=== PATIENT | male | born 1955 | race Caucasian/White ===

== ENCOUNTER 2018-08-18 07:32 | Observation (INO) | payer OTHER ==
[2018-08-18] MEDS: CIPROFLOXACIN 400MG/D5W 200 ML IVPB (08:00)
[2018-08-18] MEDS ORDERED: MITOMYCIN 5 MG INJ OP (09:00)
[2018-08-18] MEDS ORDERED: ROCURONIUM 50 MG INJ (10:23)
[2018-08-18] MEDS ORDERED: SUCCINYLCHOLINE CHLORIDE 100 MG/5 ML SYG IV (10:23)
[2018-08-18] MEDS ORDERED: GLYCOPYRROLATE 0.4 MG INJ ×2 (10:23→10:28)
[2018-08-18] MEDS ORDERED: PROPOFOL 20 ML (10:23)
[2018-08-18] MEDS ORDERED: NEOSTIGMINE 3 MG/3 ML SYRINGE ×2 (10:23→10:28)
[2018-08-18] MEDS ORDERED: LIDOCAINE 2% (SDV) 5 ML INJ (10:23)
[2018-08-18] MEDS ORDERED: IOHEXOL 300MG/ML 30 ML BTL (10:42)
[2018-08-18] MEDS ORDERED: MEPERIDINE 100 MG INJ (10:58)
[2018-08-18] MEDS: BELLADONNA ALK/OPIUM SUPP PR ×2 (12:00→13:01)
[2018-08-18] MEDS ORDERED: FENTAnyl 50 MCG/ML VIAL IV ×3 (12:00)
[2018-08-18] MEDS ORDERED: HYDROmorphONE 1 MG/5 ML IV SYRINGE IV (12:00)
[2018-08-18] MEDS ORDERED: OXYCODONE/ACETAMINOPHEN (5/325) TAB PO ×2 (12:00)
[2018-08-18] MEDS ORDERED: EPHEDrine SULFATE 50 MG/5 ML SYG IV (12:00)
[2018-08-18] MEDS ORDERED: DIPHENHYDRAMINE 50 MG INJ IV (12:00)
[2018-08-18] MEDS ORDERED: LABETALOL HCL 20MG INJ IV (12:00)
[2018-08-18] MEDS ORDERED: hydrALAzine 20 MG INJ IV (12:00)
[2018-08-18] MEDS ORDERED: METOCLOPRAMIDE 10 MG INJ IV (12:00)
[2018-08-18] MEDS ORDERED: ATROPINE 1 MG/10 ML SYRINGE (12:18)
[2018-08-18] MEDS: HYDROmorphONE 1 MG/5 ML IV SYRINGE IV ×3 (12:58→14:12)
[2018-08-18] MEDS ORDERED: MAGNESIUM HYDROXIDE 30ML CUP PO (13:00)
[2018-08-18] MEDS: MEPERIDINE 25 MG INJ IV (13:01)
[2018-08-18] MEDS: MIDAZOLAM 1 MG/ML 2 ML INJ IV (13:22)
[2018-08-18] MEDS: ONDANSETRON 4 MG INJ IV (13:22)
[2018-08-18 13:24] LABS: ADD MAN DIFF? NO
[2018-08-18 13:32] LABS: BASOPHIL # 0.1 10^3/ul (0.0-0.1); BASOPHILS % 1.1 % (0.0-2.0); EOSINOPHILS # 0.3 10^3/ul (0.0-0.5); EOSINOPHILS % 3.6 % (0.0-7.0); HEMOGLOBIN 12.6 g/dl (14.0-18.0); LYMPHOCYTES % 14.1 % (15.0-51.0); MEAN CORPUSCULAR HEMOGLOBIN 29.6 pg (29.0-33.0); MEAN CORPUSCULAR HGB CONC 33.2 g/dl (32.0-37.0); MEAN CORPUSCULAR VOLUME 89.2 fl (82.0-101.0); MEAN PLATELET VOLUME 10.3 fl (7.4-10.4); MONOCYTE # 0.5 10^3/ul (0.3-0.9); MONOCYTES % 6.7 % (0.0-11.0); NEUTROPHIL # 5.3 10^3/ul (1.6-7.5); NEUTROPHILS % 73.3 % (39.0-77.0); PLATELET COUNT 226 10^3/UL (140-415); RED BLOOD COUNT 4.26 10^6/ul (4.70-6.10); RED CELL DISTRIBUTION WIDTH 12.6 % (11.5-14.5)
[2018-08-18 13:32] LABS: WHITE BLOOD COUNT 7.3 10^3/ul (4.8-10.8)
[2018-08-18] MEDS: HYDROCODONE/APAP (5/325) TAB PO ×2 (16:56→21:02)
[2018-08-18] MEDS: CIPROFLOXACIN 500 MG TAB PO (17:57)
[2018-08-18] MEDS: DEXTROSE 5%-0.45% NACL 1,000 ML IV (17:58)
[2018-08-18] MEDS: TAMSULOSIN (SR) 0.4 MG CAP PO (21:01)
[2018-08-18] MEDS: DOCUSATE SODIUM 100 MG CAP PO (21:01)
[2018-08-18] MEDS: ZOLPIDEM 5 MG TAB PO (22:48)
[2018-08-19] MEDS: HYDROCODONE/APAP (10/325) TAB PO ×2 (02:08→11:02)
[2018-08-19] MEDS: CIPROFLOXACIN 500 MG TAB PO (06:11)
[2018-08-19] MEDS: FINASTERIDE 5 MG TAB PO (08:39)
[2018-08-19] MEDS: DOCUSATE SODIUM 100 MG CAP PO (08:40)
[2018-08-19] MEDS: morphine 2 MG INJ IV ×2 (08:41→14:10)
[2018-08-19] MEDS: DEXTROSE 5%-0.45% NACL 1,000 ML IV (08:49)
== END 2018-08-19 14:20 | disposition home or self-care (01) ==
LOC: SDS 07:32 → REC 12:53 → MS1 15:46
PROVIDERS: Urology
DX: C67.5 Malignant neoplasm of bladder neck (principal); N41.9 Inflammatory disease of prostate, unspecified; N40.1 Benign prostatic hyperplasia with lower urinary tract symptoms
CPT/HCPCS: 52214; 85025; 88305

== ENCOUNTER 2018-11-03 05:38 | Day surgery (SDC) | payer OTHER ==
[2018-11-03] MEDS: CIPROFLOXACIN 400 MG in D5W 200 ML IVPB (05:30)
[2018-11-03] MEDS: LACTATED RINGER'S 1,000 ML IV (07:19)
[2018-11-03] MEDS ORDERED: LIDOCAINE 2% (SDV) 5 ML INJ (07:27)
[2018-11-03] MEDS ORDERED: NEOSTIGMINE 3 MG/3 ML SYRINGE ×2 (07:27→09:58)
[2018-11-03] MEDS ORDERED: PROPOFOL 20 ML (07:27)
[2018-11-03] MEDS ORDERED: SUCCINYLCHOLINE CHLORIDE 100 MG/5 ML SYG IV (07:27)
[2018-11-03] MEDS ORDERED: GLYCOPYRROLATE 0.4 MG INJ ×2 (07:27→09:58)
[2018-11-03] MEDS ORDERED: MEPERIDINE 100 MG INJ (07:27)
[2018-11-03] MEDS ORDERED: ROCURONIUM 50 MG INJ (07:27)
[2018-11-03] MEDS ORDERED: CIPROFLOXACIN 400MG/D5W 200 ML (07:30)
[2018-11-03] MEDS ORDERED: ONDANSETRON 4 MG INJ (08:26)
[2018-11-03] MEDS ORDERED: MEPERIDINE 25 MG INJ IV (08:30)
[2018-11-03] MEDS ORDERED: ONDANSETRON 4 MG INJ IV (08:30)
[2018-11-03] MEDS ORDERED: METOCLOPRAMIDE 10 MG INJ IV (08:30)
[2018-11-03] MEDS ORDERED: MIDAZOLAM 1 MG/ML 2 ML INJ IV (08:30)
[2018-11-03] MEDS ORDERED: LABETALOL HCL 20MG INJ IV (08:30)
[2018-11-03] MEDS ORDERED: EPHEDrine 25 MG/5 ML SYG IV (08:30)
[2018-11-03] MEDS ORDERED: HYDROmorphONE 1 MG/5 ML IV SYRINGE IV ×2 (08:30)
[2018-11-03] MEDS ORDERED: OXYCODONE/ACETAMINOPHEN (5/325) TAB PO ×2 (08:30)
[2018-11-03] MEDS ORDERED: hydrALAzine 20 MG INJ IV (08:30)
[2018-11-03] MEDS ORDERED: DIPHENHYDRAMINE 50 MG INJ IV (08:30)
[2018-11-03] MEDS ORDERED: FENTAnyl 50 MCG/ML VIAL IV ×2 (08:30)
[2018-11-03] MEDS: FENTAnyl 50 MCG/ML VIAL IV ×2 (08:47→08:55)
[2018-11-03] MEDS: BELLADONNA ALK/OPIUM SUPP PR (09:15)
[2018-11-03] MEDS: HYDROmorphONE 1 MG/5 ML IV SYRINGE IV (09:22)
== END 2018-11-03 10:20 | disposition home or self-care (01) ==
LOC: SUR 05:38 → SDS 05:38 → SUR 10:20
DX: D49.4 Neoplasm of unspecified behavior of bladder (principal); N40.1 Benign prostatic hyperplasia with lower urinary tract symptoms; N32.89 Other specified disorders of bladder; Z85.51 Personal history of malignant neoplasm of bladder
CPT/HCPCS: 52224; 88307